=== PATIENT | female | born 1985 | race African-American/Black ===

== ENCOUNTER 2018-09-12 09:29 | Emergency (ER) | payer MEDICAID, OTHER ==
[~2018-09-12] VITALS: Ht 165.1 cm; Wt 77.1 kg
[2018-09-12 09:44] VITALS: BP_SYST 132
[2018-09-12] MEDS ORDERED: fentaNYL CITRATE/PF 100 MCG/2 ML AMP IM ONE (10:30)
[2018-09-12 12:48] VITALS: BP_SYST 125
== END 2018-09-12 12:48 | disposition home or self-care (01) ==
LOC: SED 09:29
DX: S39.012A Strain of muscle, fascia and tendon of lower back, initial encounter (principal); R11.10 Vomiting, unspecified; R03.0 Elevated blood-pressure reading, without diagnosis of hypertension; J45.909 Unspecified asthma, uncomplicated; X58.XXXA Exposure to other specified factors, initial encounter; Y93.89 Activity, other specified; Y92.89 Other specified places as the place of occurrence of the external cause; Y99.8 Other external cause status
CPT/HCPCS: 72100; 81025; 96372; 99283; J3010